=== PATIENT | female | born 1960 | race Caucasian/White ===

== ENCOUNTER 2018-02-10 17:26 | Emergency (ER) | payer SELFPAY ==
[~2018-02-10] VITALS: Ht 162.6 cm; Wt 68.0 kg
[2018-02-10 17:26] VITALS: BP_SYST 127
[2018-02-10 17:45] VITALS: BP_SYST 127
== END 2018-02-10 17:40 ==
LOC: SED 17:26
DX: F17.200 Nicotine dependence, unspecified, uncomplicated (principal); Z02.89 Encounter for other administrative examinations; Z86.19 Personal history of other infectious and parasitic diseases
CPT/HCPCS: 99283